=== PATIENT | female | born 1955 | race African-American/Black ===

== ENCOUNTER 2021-02-28 16:20 | Emergency (ER) | payer OTHER ==
[~2021-02-28 16:20] MED LIST: BASAGLAR K100 UNIT/1 SC; CATAPRES0.1 MG PO; CLARITIN10 MG PO; FLEXERIL10 MG PO; GLUCOTROL10 MG PO; HUMULIN N100 UNIT/2 SC; JANUMET 50-1,01 EACH PO; K-DUR20 MEQ PO; KEFLEX500 MG PO; LASIX40 MG PO; LOPRESSOR50 MG PO; LOVASTATIN20 MG PO; PREDNISONE 20MG20 MG PO; PRILOSEC20 MG PO; PRINIVIL20 MG PO; SINGULAIR10 MG PO; TRAMADOL HCL50 MG PO; VITAMIN D-32000 UNIT PO; VOLTAREN100 GM TOP; ZYRTEC10 MG PO
[2021-02-28 17:32] LABS: BASOPHIL 0.3 % (0-2); EOSINOPHIL 0.8 % (0-7); HCT 39.2 % (37.0-47.0); HGB 11.9 g/dl (12.5-16.0); LYMPHOCYTE 11.9 % (15-48); MCH 27.2 pg (25.0-31.0); MCHC 30.4 g/dL (32.0-36.0); MCV 89.5 fL (78.0-100.0); MONOCYTE 13.4 % (0-12); NEUTROPHIL 73.2 % (41-80); NRBC 0; PLT 236 K/uL (150-400); RBC 4.38 M/uL (4.20-5.40); RDW 15.6 % (11.5-14.0)
[2021-02-28 17:36] LABS: INR 1.08 (0.9-1.2); PROTHROMBIN TIME 13.3 SECONDS (11.4-13.6)
[2021-02-28 17:50] LABS: CREATININE 0.75 mg/dL (0.51-0.95); POTASSIUM 3.8 mmol/L (3.5-5.1)
[2021-02-28 17:51] LABS: ALBUMIN 4.1 g/dL (3.4-5.0); BILIRUBIN - TOTAL 0.3 mg/dL (0.2-1.0); GLOBULIN (CALCULATION) 3.8 g/dL; TOTAL PROTEIN 7.9 g/dL (6.4-8.2)
[2021-03-01] MEDS ORDERED: CEFDINIR300 MG PO (14:54)
== END 2021-02-28 18:03 | disposition left against medical advice (07) ==
LOC: FER 16:20
PROVIDERS: Emergency Medicine
DX: R06.02 Shortness of breath (principal); R07.89 Other chest pain; R05 Cough; J44.9 Chronic obstructive pulmonary disease, unspecified; E11.9 Type 2 diabetes mellitus without complications; F17.210 Nicotine dependence, cigarettes, uncomplicated; Z53.8 Procedure and treatment not carried out for other reasons
CPT/HCPCS: 36415; 71045; 80053; 84484; 85025; 85610; 93005

== ENCOUNTER 2021-03-01 11:29 | Emergency (ER) | payer OTHER ==
[2021-03-01 12:32] LABS: BASOPHIL 0.2 % (0-2); EOSINOPHIL 0.1 % (0-7); HCT 40.1 % (37.0-47.0); HGB 12.2 g/dl (12.5-16.0); LYMPHOCYTE 7.2 % (15-48); MCH 27.1 pg (25.0-31.0); MCHC 30.4 g/dL (32.0-36.0); MCV 89.1 fL (78.0-100.0); MONOCYTE 11.2 % (0-12); MPV 11.6 fL (6.0-9.5); NEUTROPHIL 80.8 % (41-80); NRBC 0; PLT 225 K/uL (150-400); RDW 15.7 % (11.5-14.0)
[2021-03-01 13:03] LABS: BILIRUBIN - TOTAL 0.4 mg/dL (0.2-1.0); CREATININE 0.6 mg/dL (0.51-0.95); GLOBULIN (CALCULATION) 3.9 g/dL; POTASSIUM 3.7 mmol/L (3.5-5.1); PRO-BNP 128 pg/mL (<125); TOTAL PROTEIN 7.9 g/dL (6.4-8.2)
[2021-03-01 13:24] LABS: CORONAVIRUS 2019 SARS-COV-2 NEGATIVE (NEGATIVE); INFLUENZA A NAA NEGATIVE (NEGATIVE)
[2021-03-01] MEDS ORDERED: CEFDINIR300 MG PO (14:54)
== END 2021-03-01 16:25 | disposition home or self-care (01) ==
LOC: FER 11:29
PROVIDERS: Emergency Medicine
DX: J18.9 Pneumonia, unspecified organism (principal); R00.0 Tachycardia, unspecified; J44.0 Chronic obstructive pulmonary disease with (acute) lower respiratory infection; E11.9 Type 2 diabetes mellitus without complications; I10 Essential (primary) hypertension; F17.210 Nicotine dependence, cigarettes, uncomplicated; Z20.822 Contact with and (suspected) exposure to COVID-19
CPT/HCPCS: 36415; 36600; 71046; 71275; 80053; 82803; 83605; 83880; 84145; 84484; 85025; 85379; 87040; 93005; 94760; J0696; U0002

== ENCOUNTER 2022-01-09 04:45 | Emergency (ER) | payer MEDICARE, OTHER ==
[~2022-01-09 04:45] MED LIST changes: +CEFDINIR300 MG PO
[2022-01-09 06:33] LABS: BASOPHIL 0.4 % (0-2); EOSINOPHIL 1.7 % (0-7); HCT 36.4 % (37.0-47.0); HGB 10.7 g/dl (12.5-16.0); LYMPHOCYTE 29.4 % (15-48); MCH 24.8 pg (25.0-31.0); MCHC 29.4 g/dL (32.0-36.0); MCV 84.3 fL (78.0-100.0); MPV 10.8 fL (6.0-9.5); NEUTROPHIL 58.3 % (41-80); NRBC 0; PLT 253 K/uL (150-400); RBC 4.32 M/uL (4.20-5.40); RDW 17.9 % (11.5-14.0); WBC 5.3 K/uL (4.0-10.5)
[2022-01-09] MEDS ORDERED: NORCO 5-325 TA1 EACH PO (07:12)
[2022-01-09 07:31] LABS: BUN/CREAT RATIO (CALC) 22.4 RATIO; CREATININE 0.58 mg/dL (0.51-0.95); FOLIC ACID (SERUM) 15.3 ng/mL (8.6-58.9); POTASSIUM 4.3 mmol/L (3.5-5.1)
== END 2022-01-09 10:58 | disposition home or self-care (01) ==
LOC: FER 04:45
PROVIDERS: Internal Medicine
DX: E11.40 Type 2 diabetes mellitus with diabetic neuropathy, unspecified (principal); B35.1 Tinea unguium; J44.9 Chronic obstructive pulmonary disease, unspecified; F17.210 Nicotine dependence, cigarettes, uncomplicated
CPT/HCPCS: 36415; 80048; 82607; 82746; 84443; 85025; 99283